=== PATIENT | female | born 1970 | race African-American/Black ===

== ENCOUNTER 2016-09-05 11:12 | Emergency (ER) | payer OTHER ==
[~2016-09-05] VITALS: Ht 165.1 cm; Wt 92.5 kg
[~2016-09-05 11:12] MED LIST: HYDR50TA PO
[2016-09-05] MEDS ORDERED: OXYB5 PO (11:16)
[2016-09-05] MEDS ORDERED: LISI1TAB9 PO (11:16)
[2016-09-05] MEDS ORDERED: PredniSONE 20 MG TABLET PO ONE (13:00)
[2016-09-05] MEDS ORDERED: DiphenhydrAMINE HCL 50 MG CAPSULE PO ONE (13:00)
[2016-09-05 14:00] VITALS: BP 131/81
== END 2016-09-05 14:04 | disposition home or self-care (01) ==
LOC: EMS 11:14
DX: T78.3XXA Angioneurotic edema, initial encounter (principal); I10 Essential (primary) hypertension; F17.210 Nicotine dependence, cigarettes, uncomplicated
CPT/HCPCS: 99283; J7512

== ENCOUNTER 2018-02-05 01:51 | Emergency (ER) | payer OTHER ==
[~2018-02-05] VITALS: Ht 165.1 cm; Wt 90.9 kg
[~2018-02-05 01:51] MED LIST changes: +LISI1TAB9 PO; +OXYB5 PO
[2018-02-05] MEDS ORDERED: LISI-662 PO (02:11)
[2018-02-05] MEDS ORDERED: SULFAMETHOX/TRIMETH DS 800-160 MG/TABLET PO ONE (03:30)
[2018-02-05] MEDS ORDERED: CEPHALEXIN MONOHYDRATE 500 MG CAPSULE PO ONE (03:30)
[2018-02-05 03:54] VITALS: BP 151/93
== END 2018-02-05 03:56 | disposition home or self-care (01) ==
LOC: EMS 01:52
DX: L02.611 Cutaneous abscess of right foot (principal); I10 Essential (primary) hypertension; F17.210 Nicotine dependence, cigarettes, uncomplicated
CPT/HCPCS: 10060; 87070; 87205